=== PATIENT | female | born 1975 | race Caucasian/White ===

== ENCOUNTER → 2020-01-06 | Outpatient (CLI) | payer OTHER ==
[~2020-01-06] MED LIST: ACET65TA OR; ALLE25CA OR; VICO5TAB OR
[2020-01-06 11:29] LABS: HCG, SERUM QUANTITATIVE < 1.0 MIU/ML
[2020-01-06 11:31] LABS: ESTRADIOL < 19.0 PG/ML; LUTEINIZING HORMONE 4.1 mIU/mL; PROGESTERONE 0.48 NG/ML
[2020-01-06 11:32] LABS: FOLLICLE STIMULATING HORMONE 12.8 mIU/mL
--- NOTE | 2020-01-06 11:48 | REP ---
TRANSVAGINAL PELVIC ULTRASOUND FOLLICLE STUDY: Real-time sonographic evaluation of the pelvis performed utilizing transvaginal technique. Uterus measures 10.8 x 5.3 x 6.8 cm. Endometrial thickness is 4 mm. There is no endometrial fluid collection. A few small nabothian cysts are present in the region of the cervix. Right ovary measures 2.2 x 1.1 x 1.7 cm. There are approximately five subcentimeter follicles noted measuring between 2 and 6 mm. Left ovary measures 2.1 x 1.2 x 1.8 cm. There are approximately nine subcentimeter follicles in the left ovary measuring 1 to 3 mm in diameter. No follicles are seen greater than 10 mm. Electronically Signed by Duy Becker MD 01/06/2020 02:23 P
== END ==
LOC: M RAD 09:42
PROVIDERS: ATTEND Obstetrics & Gynecology Reproductive Endocrinology
DX: E28.9 Ovarian dysfunction, unspecified (principal)

== ENCOUNTER → 2020-02-09 | Outpatient (CLI) | payer OTHER ==
--- NOTE | 2020-02-09 13:33 | REP ---
Transvaginal pelvic sonography: History: Ovarian dysfunction. Follicle study. Findings: Uterine dimensions are 10.5 x 6.0 x 6.6 cm. Endometrial stripe is 0.9 cm in greatest thickness today. Trilaminar appearance. No free fluid is seen in the cul-de-sac. The right ovary has dimensions of 2.4 x 2.2 x 1.9 cm today. There are no follicles greater than a centimeter in the right ovary. The right ovary contains three follicles ranging in size from 0.2-0.6 cm. The overall dimensions of the left ovary are 3.2 x 1.4 x 3.0 cm. There is a 1.1 by 0.7 cm cyst in the left ovary with a some internal echoes. There are three follicles in the left ovary ranging in size from 0.3-0.4 cm. No other left ovarian follicles are seen. Impression: Ovarian follicle study as above. Electronically Signed by Harman Early MD 02/09/2020 01:25 P
[2020-02-09 13:46] LABS: HCG, SERUM QUANTITATIVE < 1.0 MIU/ML
[2020-02-09 13:47] LABS: ESTRADIOL 34.5 PG/ML; LUTEINIZING HORMONE 2.9 mIU/mL; PROGESTERONE 0.69 NG/ML
[2020-02-09 13:48] LABS: FOLLICLE STIMULATING HORMONE 4.7 mIU/mL
== END ==
LOC: M LAB 12:39
PROVIDERS: ATTEND Obstetrics & Gynecology Reproductive Endocrinology
DX: E28.9 Ovarian dysfunction, unspecified (principal)

== ENCOUNTER → 2020-02-15 | Outpatient (CLI) | payer OTHER ==
[2020-02-15 11:10] LABS: HCG, SERUM QUANTITATIVE < 1.0 MIU/ML
[2020-02-15 11:26] LABS: LUTEINIZING HORMONE 5.2 mIU/mL; PROGESTERONE 0.32 NG/ML
[2020-02-15 11:27] LABS: ESTRADIOL 38.1 PG/ML; FOLLICLE STIMULATING HORMONE 12.8 mIU/mL
--- NOTE | 2020-02-15 13:19 | REP ---
TRANSVAGINAL PELVIC ULTRASOUND, FOLLICLE STUDY: Transvaginal ultrasound of the pelvis is performed. The uterus measures 9.9 x 5.0 x 6.2 cm. Endometrial thickness is 4 mm. Subcentimeter nabothian cyst is seen in the region of the cervix. Right ovary measures 2.2 x 1.7 x 2.0 cm. Left ovary measures 2.8 x 1.5 x 2.1 cm. There are no dominant follicles bilaterally greater than 10 mm in diameter. There are approximately four subcentimeter follicles in the right ovary and three in the left ovary. Electronically Signed by Duy Becker MD 02/15/2020 01:45 P
== END ==
LOC: M RAD 09:30
PROVIDERS: ATTEND Obstetrics & Gynecology Reproductive Endocrinology
DX: E28.9 Ovarian dysfunction, unspecified (principal)

== ENCOUNTER → 2020-02-19 | Outpatient (CLI) | payer OTHER ==
[2020-02-19 09:45] LABS: HCG, SERUM QUANTITATIVE < 1.0 MIU/ML
--- NOTE | 2020-02-19 10:24 | REP ---
TRANSVAGINAL PELVIS ULTRASOUND FOLLICLE STUDY: Transvaginal pelvic ultrasound performed. The uterus measures 10.2 x 5.1 x 6.3 cm. Endometrial thickness is 5 mm. Tiny nabothian cyst is seen in the region of the cervix. Right ovary measures 3.3 x 2.1 x 2.5 cm. A dominant follicle measures 19 x 15 mm. Another subcentimeter follicle is seen approximately 4 mm in diameter. Left ovary measures 3.5 x 0.9 x 2.1 cm. Approximately five subcentimeter follicles are seen in the left ovary. Electronically Signed by Duy Becker MD 02/19/2020 11:08 A
[2020-02-19 11:27] LABS: PROGESTERONE 0.43 NG/ML
[2020-02-19 11:28] LABS: FOLLICLE STIMULATING HORMONE 11.6 mIU/mL; LUTEINIZING HORMONE 6.2 mIU/mL
== END ==
LOC: M RAD 08:37
PROVIDERS: ATTEND Obstetrics & Gynecology Reproductive Endocrinology
DX: N93.9 Abnormal uterine and vaginal bleeding, unspecified (principal)

== ENCOUNTER → 2020-03-07 | Outpatient (CLI) | payer OTHER ==
[2020-03-07 09:19] LABS: HCG, SERUM QUANTITATIVE < 1.0 MIU/ML
[2020-03-07 10:56] LABS: PROGESTERONE 6.75 NG/ML
== END ==
LOC: M LAB 08:12
PROVIDERS: ATTEND Obstetrics & Gynecology Reproductive Endocrinology
DX: Z32.00 Encounter for pregnancy test, result unknown (principal)

== ENCOUNTER → 2020-03-14 | Outpatient (CLI) | payer OTHER ==
[2020-03-14 09:41] LABS: HCG, SERUM QUANTITATIVE < 1.0 MIU/ML
[2020-03-14 10:23] LABS: PROGESTERONE 0.38 NG/ML
[2020-03-14 10:24] LABS: ESTRADIOL 288.3 PG/ML; FOLLICLE STIMULATING HORMONE 5.1 mIU/mL; LUTEINIZING HORMONE 2.6 mIU/mL
--- NOTE | 2020-03-14 10:29 | REP ---
REASON FOR EXAMINATION: Ovarian dysfunction. Transvaginal pelvic ultrasonography was obtained. The uterus measures 10.4 x 5.3 x 7.1 cm. The parenchymal echo pattern is normal. The endometrial echo complex is normal measuring 7 mm. The right ovary measures 3 x 1.3 x 1.6 cm and is normal. There are six folliclis in the right ovary measuring between 3.2 and 4.5 mm. The left ovary measures 3.8 x 3.1 x 4.6 cm. There is a thickly septated complex cyst in the left ovary which measures 2.7 x 2.6 cm. No papillary projections are seen. A dominant follicle is also seen in the left ovary measuring 1.3 x 0.7 cm. Additionally, there are two follicles in the left ovary measuring between 3.9 and 5.3 mm. IMPRESSION: Findings as described above. Electronically Signed by Darwin Urrutia DO 03/14/2020 04:01 P
== END ==
LOC: M RAD 08:18
PROVIDERS: ATTEND Obstetrics & Gynecology Reproductive Endocrinology
DX: E28.9 Ovarian dysfunction, unspecified (principal)

== ENCOUNTER → 2020-03-21 | Outpatient (CLI) | payer OTHER ==
[2020-03-21 09:45] LABS: HCG, SERUM QUANTITATIVE < 1.0 MIU/ML
[2020-03-21 09:48] LABS: PROGESTERONE 0.56 NG/ML
[2020-03-21 09:49] LABS: LUTEINIZING HORMONE 3.8 mIU/mL
[2020-03-21 09:50] LABS: ESTRADIOL 549.3 PG/ML; FOLLICLE STIMULATING HORMONE 8.2 mIU/mL
--- NOTE | 2020-03-21 11:26 | REP ---
Transvaginal pelvic sonography: History: Ovarian dysfunction. Follicle study. Findings: Transvaginal pelvic sonography is performed. Uterine dimensions are 10.2 x 5.9 x 6.2 cm. Endometrial stripe is 0.8 cm thick. No free fluid or focal uterine mass is seen. Right ovary measures 2.4 x 1.5 x 1.6 cm. Left ovary measures 4.0 x 3.1 x 4.3 cm. There are no follicles over a centimeter in the right ovary. The right ovary contains four follicles ranging in size of 0.4-0.7 cm. In the left ovary there is a 3.3 x 2.8 centimeter cyst and a 1.4 x 0.6 cm follicle. There are three follicles in the left ovary ranging from 0.4-0.5 cm. Impression: Mildly prominent uterine size. Ovaries and follicles as above. Electronically Signed by Harman Early MD 03/21/2020 09:27 A
== END ==
LOC: M RAD 08:45
PROVIDERS: ATTEND Obstetrics & Gynecology Reproductive Endocrinology
DX: N97.9 Female infertility, unspecified (principal)

== ENCOUNTER → 2020-03-23 | Outpatient (CLI) | payer OTHER ==
[2020-03-23 10:21] LABS: HCG, SERUM QUANTITATIVE < 1.0 MIU/ML
[2020-03-23 10:24] LABS: ESTRADIOL 545.6 PG/ML; LUTEINIZING HORMONE 3.9 mIU/mL; PROGESTERONE 0.65 NG/ML
--- NOTE | 2020-03-23 10:24 | REP ---
Transvaginal pelvic sonography: History: Ovarian dysfunction. Follicle study. Findings: Uterine dimensions are 10.6 x 5.5 x 6.8 cm. Endometrial stripe is 0.9 cm thick. No focal uterine mass is seen. The right ovaries dimensions today overall are 2.3 x 1.6 x 1.9 cm. There are no follicles measuring greater than a centimeter in the right ovary today. There are five follicles in the right ovary ranging in size from 0.4-0.9 cm. The left ovary dimensions are 4.6 x 3.1 by 4.6 cm. There are two follicles in the left ovary ranging from 0.4-0.8 cm. There is a 3.4 x 2.7 centimeter cystic lesion in the left ovary containing septations. No other follicles larger than a centimeter is seen in the left ovary. Impression: Ovarian follicle study as above. 3.4 cm septated cyst in the left ovary. Electronically Signed by Harman Early MD 03/23/2020 10:15 A
== END ==
LOC: M RAD 09:06
PROVIDERS: ATTEND Obstetrics & Gynecology Reproductive Endocrinology
DX: E28.9 Ovarian dysfunction, unspecified (principal)

== ENCOUNTER → 2020-03-25 | Outpatient (CLI) | payer OTHER ==
[2020-03-25 11:51] LABS: HCG, SERUM QUANTITATIVE < 1.0 MIU/ML
[2020-03-25 11:52] LABS: LUTEINIZING HORMONE 3.2 mIU/mL; PROGESTERONE 0.56 NG/ML
[2020-03-25 11:53] LABS: ESTRADIOL 508.7 PG/ML; FOLLICLE STIMULATING HORMONE 7.5 mIU/mL
--- NOTE | 2020-03-25 13:23 | REP ---
TRANSVAGINAL PELVIC ULTRASOUND, FOLLICLE STUDY: Real-time sonographic evaluation of pelvis performed utilizing transvaginal technique. Uterus measures 10.6 x 5.6 x 5.9 cm. Endometrial stripe measures 14 mm in AP dimension. There is no endometrial fluid collection. Right ovary measures 2.3 x 1.8 x 2.0 cm. A dominant follicle measures 12 x 7 mm. Approximately six other subcentimeter follicles range in size between 3 and 6 mm. Left ovary measures 4.9 x 2.9 x 4.6 cm. Dominant follicle measures 11 x 6 mm. Cystic structure in the left ovary 3.9 x 2.3 cm contains a small internal daughter cyst. Electronically Signed by Duy Becker MD 03/25/2020 03:20 P
== END ==
LOC: M LAB 09:28
PROVIDERS: ATTEND Obstetrics & Gynecology Reproductive Endocrinology
DX: E28.9 Ovarian dysfunction, unspecified (principal)

== ENCOUNTER → 2020-03-29 | Outpatient (CLI) | payer OTHER ==
--- NOTE | 2020-03-29 07:39 | REPVR ---
PROCEDURE INFORMATION: Exam: US Pelvis, Transvaginal Exam date and time: 03/29/2020 7:25 AM Age: 44 years old Clinical indication: Screening exam; Follicle study; Additional info: Ovarian dysfunction TECHNIQUE: Imaging protocol: Real-time transvaginal pelvic ultrasound with image documentation. Transvaginal imaging was used for better evaluation of the endometrium and adnexa. COMPARISON: Transvaginal NON- US 03/25/2020 10:49 AM FINDINGS: Uterus/cervix: Uterus measures 10.6 x 5.0 x 6.7 cm. Endometrial stripe measures 1.1 cm in thickness. No uterine masses. Right adnexa: Right ovary measures 2.1 x 1.9 x 1.7 cm. Anechoic cyst in the right ovary measuring 12.8 x 8.6 mm. No abnormal number of follicles. Left adnexa: Left ovary measures 5.2 x 3.1 x 5.2 cm. Cyst in the left ovary measuring 3.1 x 2.6 cm containing 7 mm daughter cyst. Small cyst measuring 1.8 x 0.8 cm. Small cyst measuring 1.1 x 0.7 cm. No abnormal number of follicles. Free fluid: None. IMPRESSION: 1. Dominant cyst in the left ovary. Other smaller cysts in the ovaries bilaterally. No follow-up is necessary. 2. Endometrial stripe is within normal limits for premenopausal female. Electronically signed by: Bennett Richardson On 03/29/2020 07:39:01 AM
[2020-03-29 08:05] LABS: ESTRADIOL 366.3 PG/ML; LUTEINIZING HORMONE 5.4 mIU/mL; PROGESTERONE 0.48 NG/ML
== END ==
LOC: M RAD 06:39
PROVIDERS: ATTEND Obstetrics & Gynecology Reproductive Endocrinology
DX: E28.9 Ovarian dysfunction, unspecified (principal); N83.201 Unspecified ovarian cyst, right side; N83.202 Unspecified ovarian cyst, left side

== ENCOUNTER → 2020-04-18 | Outpatient (CLI) | payer OTHER ==
[2020-04-18 15:03] LABS: HCG, SERUM QUANTITATIVE < 1.0 MIU/ML
[2020-04-18 15:11] LABS: PROGESTERONE 1.75 NG/ML
== END ==
LOC: M LAB 13:46
PROVIDERS: ATTEND Obstetrics & Gynecology Reproductive Endocrinology
DX: E28.9 Ovarian dysfunction, unspecified (principal)

== ENCOUNTER → 2020-05-04 | Outpatient (CLI) | payer OTHER ==
[2020-07-01 22:46] LABS: ESTRADIOL 424.7 PG/ML; LUTEINIZING HORMONE 6.8 mIU/mL; PROGESTERONE 0.73 NG/ML
== END ==
LOC: M LAB 08:46
PROVIDERS: ATTEND Obstetrics & Gynecology Reproductive Endocrinology
DX: E28.9 Ovarian dysfunction, unspecified (principal)

== ENCOUNTER → 2020-05-05 | Outpatient (CLI) | payer OTHER ==
[2020-07-02 15:57] LABS: PROGESTERONE 1.34 NG/ML
[2020-07-02 15:58] LABS: ESTRADIOL 740.2 PG/ML; LUTEINIZING HORMONE 10.5 mIU/mL
== END ==
LOC: M LAB 15:00
PROVIDERS: ATTEND Obstetrics & Gynecology Reproductive Endocrinology
DX: E28.9 Ovarian dysfunction, unspecified (principal)

== ENCOUNTER → 2020-05-16 | Outpatient (CLI) | payer OTHER ==
[2020-07-14 14:41] LABS: ESTRADIOL 452.9 PG/ML; PROGESTERONE 34.55 NG/ML
== END ==
LOC: M LAB 11:25
PROVIDERS: ATTEND Obstetrics & Gynecology Reproductive Endocrinology
DX: E28.9 Ovarian dysfunction, unspecified (principal)

== ENCOUNTER → 2020-05-23 | Outpatient (CLI) | payer OTHER ==
[2020-05-23 12:12] LABS: HCG, SERUM QUANTITATIVE < 1.0 MIU/ML
[2020-05-23 12:44] LABS: PROGESTERONE 1.77 NG/ML
== END ==
LOC: M LAB 10:32
PROVIDERS: ATTEND Obstetrics & Gynecology Reproductive Endocrinology
DX: Z32.00 Encounter for pregnancy test, result unknown (principal)

== ENCOUNTER → 2020-05-25 | Outpatient (CLI) | payer OTHER ==
[2020-05-25 11:41] LABS: HCG, SERUM QUANTITATIVE < 1.0 MIU/ML
[2020-05-25 11:51] LABS: PROGESTERONE 3.35 NG/ML
== END ==
LOC: M LAB 10:24
PROVIDERS: ATTEND Obstetrics & Gynecology Reproductive Endocrinology
DX: E28.9 Ovarian dysfunction, unspecified (principal)

== ENCOUNTER → 2020-06-01 | Outpatient (CLI) | payer OTHER ==
[2020-06-01 12:47] LABS: ESTRADIOL < 19.0 PG/ML; LUTEINIZING HORMONE 6.3 mIU/mL; PROGESTERONE 0.33 NG/ML
== END ==
LOC: M LAB 09:40
PROVIDERS: ATTEND Obstetrics & Gynecology Reproductive Endocrinology
DX: E28.9 Ovarian dysfunction, unspecified (principal)

== ENCOUNTER → 2020-06-03 | Outpatient (CLI) | payer OTHER ==
[2020-06-03 11:31] LABS: ESTRADIOL 38.8 PG/ML; LUTEINIZING HORMONE 7.7 mIU/mL; PROGESTERONE 0.6 NG/ML
== END ==
LOC: M LAB 08:30
PROVIDERS: ATTEND Obstetrics & Gynecology Reproductive Endocrinology
DX: E28.9 Ovarian dysfunction, unspecified (principal)

== ENCOUNTER → 2020-06-08 | Outpatient (CLI) | payer OTHER ==
[2020-06-08 12:52] LABS: LUTEINIZING HORMONE 5.1 mIU/mL; PROGESTERONE 0.32 NG/ML
== END ==
LOC: M LAB 09:23
PROVIDERS: ATTEND Obstetrics & Gynecology Reproductive Endocrinology
DX: E28.9 Ovarian dysfunction, unspecified (principal)

== ENCOUNTER → 2020-06-21 | Outpatient (CLI) | payer OTHER ==
[2020-06-21 10:35] LABS: HCG, SERUM QUANTITATIVE < 1.0 MIU/ML
[2020-06-21 10:43] LABS: PROGESTERONE 22.15 NG/ML
== END ==
LOC: M LAB 09:30
PROVIDERS: ATTEND Obstetrics & Gynecology Reproductive Endocrinology
DX: Z32.00 Encounter for pregnancy test, result unknown (principal)

== ENCOUNTER → 2020-06-27 | Outpatient (CLI) | payer OTHER ==
[2020-06-27 14:11] LABS: ESTRADIOL 28.7 PG/ML; PROGESTERONE 0.29 NG/ML
== END ==
LOC: M LAB 13:07
PROVIDERS: ATTEND Obstetrics & Gynecology Reproductive Endocrinology
DX: E28.9 Ovarian dysfunction, unspecified (principal)

== ENCOUNTER → 2020-07-04 | Outpatient (CLI) | payer OTHER ==
[2020-07-04 12:51] LABS: LUTEINIZING HORMONE 6.4 mIU/mL; PROGESTERONE 0.21 NG/ML
== END ==
LOC: M LAB 11:31
PROVIDERS: ATTEND Obstetrics & Gynecology Reproductive Endocrinology
DX: E28.9 Ovarian dysfunction, unspecified (principal)

== ENCOUNTER → 2020-07-06 | Outpatient (CLI) | payer OTHER ==
[2020-07-06 11:51] LABS: ESTRADIOL 221.3 PG/ML; LUTEINIZING HORMONE 4.9 mIU/mL; PROGESTERONE 0.21 NG/ML
== END ==
LOC: M LAB 09:59
PROVIDERS: ATTEND Obstetrics & Gynecology Reproductive Endocrinology
DX: E28.9 Ovarian dysfunction, unspecified (principal)

== ENCOUNTER → 2020-07-06 | Outpatient (CLI) | payer OTHER ==
[2020-07-06 12:18] LABS: FOLATE > 24.0 NG/ML; FREE T4 1.12 NG/DL (0.76-1.46); RHEUMATOID FACTOR QUANT < 10.0 IU/ML (<15.0); TOTAL PROTEIN 6.8 GM/DL (6.4-8.2); VITAMIN B12 LEVEL 596 PG/ML
[2020-07-06 13:33] LABS: HEMOGLOBIN A1c 5.2 %
[2020-07-07 15:01] LABS: ALBUMIN 3.91 GM/DL (3.29-5.55); ALBUMIN % 57.5 % (55.8-66.1); ALPHA-1-GLOBULIN % 4.5 % (2.9-4.9); ALPHA-1-GLOBULINS 0.31 GM/DL (0.17-0.41); ALPHA-2-GLOBULINS 0.61 GM/DL (0.42-0.99); BETA-1-GLOBULINS 0.46 GM/DL (0.28-0.60); BETA-1-GLOBULINS % 6.7 % (4.7-7.2); BETA-2-GLOBULINS 0.42 GM/DL (0.19-0.55); BETA-2-GLOBULINS % 6.2 % (3.2-6.5); GAMMA GLOBULIN % 16.1 % (11.1-18.8); GAMMA GLOBULINS 1.09 GM/DL (0.65-1.58)
[2020-07-10 07:48] LABS: DRVV SCREEN 45.7 SEC
[2020-07-10 07:49] LABS: PTT LUPUS TYPE ANTICOAG SCREEN 1.1 (0-1.2)
[2020-07-12 11:12] LABS: ANTI DOUBLE STRAND-DNA AB 1 IU/mL (0-9); ANTINUCLEAR ANTIBODIES DIRECT Positive (Negative); RNP ANTIBODIES 2.1 AI (0.0-0.9); SJOGREN'S ANTI SS-A <0.2 AI (0.0-0.9); SJOGREN'S ANTI SS-B <0.2 AI (0.0-0.9); SMITH ANTIBODIES <0.2 AI (0.0-0.9); VITAMIN B1 LEVEL WHOLE BLOOD 148.5 nmol/L (66.5-200.0); VITAMIN B6,PYRIDOXAL PHOSPHATE 6.6 ug/L (2.0-32.8); VITAMIN E(ALPHA TOCOPHEROL) 8.6 mg/L (7.0-25.1); VITAMIN E(GAMMA TOCOPHEROL) 1.4 mg/L (0.5-5.5)
== END ==
LOC: M LAB 10:01
PROVIDERS: ATTEND Psychiatry & Neurology Neurology
DX: M54.5 Low back pain (principal); E28.9 Ovarian dysfunction, unspecified; G62.9 Polyneuropathy, unspecified

== ENCOUNTER → 2020-07-21 | Outpatient (CLI) | payer OTHER ==
[2020-07-21 17:59] LABS: HCG, SERUM QUANTITATIVE < 1.0 MIU/ML
== END ==
LOC: M LAB 17:01
PROVIDERS: ATTEND Obstetrics & Gynecology Reproductive Endocrinology
DX: Z32.00 Encounter for pregnancy test, result unknown (principal)

== ENCOUNTER → 2020-07-25 | Outpatient (CLI) | payer OTHER | LOC: M LAB 10:32 | PROVIDERS: ATTEND Obstetrics & Gynecology Reproductive Endocrinology | DX: E28.9 Ovarian dysfunction, unspecified (principal) ==

== ENCOUNTER → 2020-07-27 | Outpatient (CLI) | payer OTHER ==
[2020-07-27 11:15] LABS: ESTRADIOL 38.4 PG/ML; LUTEINIZING HORMONE 5.2 mIU/mL; PROGESTERONE 0.35 NG/ML
== END | disposition home or self-care (01) ==
LOC: M LAB 09:07
PROVIDERS: ATTEND Obstetrics & Gynecology Reproductive Endocrinology
DX: E28.9 Ovarian dysfunction, unspecified (principal)

== ENCOUNTER → 2020-08-11 | Outpatient (CLI) | payer OTHER ==
[2020-08-11 18:51] LABS: ESTRADIOL 66.3 PG/ML; PROGESTERONE 53.53 NG/ML
== END ==
LOC: M LAB 17:04
PROVIDERS: ATTEND Obstetrics & Gynecology Reproductive Endocrinology
DX: E28.9 Ovarian dysfunction, unspecified (principal)

== ENCOUNTER → 2020-08-18 | Outpatient (CLI) | payer OTHER ==
[2020-08-18 18:08] LABS: HCG, SERUM QUANTITATIVE < 1.0 MIU/ML
[2020-08-18 18:11] LABS: PROGESTERONE 28.78 NG/ML
== END ==
LOC: M LAB 17:17
PROVIDERS: ATTEND Obstetrics & Gynecology Reproductive Endocrinology
DX: E28.9 Ovarian dysfunction, unspecified (principal)

== ENCOUNTER → 2020-09-01 | Outpatient (CLI) | payer OTHER ==
[2020-09-01 15:49] LABS: ESTRADIOL 75.4 PG/ML; PROGESTERONE 0.52 NG/ML
== END ==
LOC: M LAB 14:26
PROVIDERS: ATTEND Obstetrics & Gynecology Reproductive Endocrinology
DX: E28.9 Ovarian dysfunction, unspecified (principal)

== ENCOUNTER → 2020-09-06 | Outpatient (CLI) | payer OTHER ==
--- NOTE | 2020-09-06 17:09 | REPVR ---
PROCEDURE INFORMATION: Exam: CT Lumbar Spine Without Contrast Exam date and time: 09/06/2020 4:52 PM Age: 44 years old Clinical indication: Low back pain TECHNIQUE: Imaging protocol: Computed tomography images of the lumbar spine without contrast. Radiation optimization: All CT scans at this facility use at least one of these dose optimization techniques: automated exposure control; mA and/or kV adjustment per patient size (includes targeted exams where dose is matched to clinical indication); or iterative reconstruction. COMPARISON: No relevant prior studies available. FINDINGS: Vertebrae: Lumbar lordosis is preserved. Vertebral body heights are maintained. No acute lumbar spine fracture. No measurable spondylolisthesis. Discs/Spinal canal/Neural foramina: Disc space heights are intact. No significant spinal stenosis. Kidneys and ureters: 4 cm fluid density cyst in the superior left kidney. Soft tissues: Multiple small metallic foreign bodies within the posterior back soft tissues. IMPRESSION: 1. No acute in the lumbar spine. 2. Chronic findings, as above. COMMENTS: Consistent with the [employer]'s Incidental Findings Committee white paper (J Am Zach Radiol 2018): Any incidental renal lesion less than 1 cm or classified as too small to characterize, or any incidental cystic renal lesion characterized as simple-appearing, is likely benign. No follow-up imaging is recommended for these lesions per consensus recommendations based on imaging criteria. Electronically signed by: Ady Jackson On 09/06/2020 17:10:04 PM
--- NOTE | 2020-09-06 17:25 | REPVR ---
PROCEDURE INFORMATION: Exam: CT Cervical Spine Without Contrast Exam date and time: 09/06/2020 5:06 PM Age: 44 years old Clinical indication: Neck pain; Additional info: Neck and lbp TECHNIQUE: Imaging protocol: Computed tomography images of the cervical spine without contrast. Radiation optimization: All CT scans at this facility use at least one of these dose optimization techniques: automated exposure control; mA and/or kV adjustment per patient size (includes targeted exams where dose is matched to clinical indication); or iterative reconstruction. COMPARISON: No relevant prior studies available. FINDINGS: Bones/joints: Straightening of the cervical lordosis. Vertebral body heights are maintained. No locked or perched facets. No acute cervical spine fracture. The dens is intact. Atlantoaxial intervals are normal. Discs/Spinal canal/Neural foramina: Mild disc height loss and disc osteophyte formation at C5-C6. Remaining disc space heights are preserved. Soft tissues: Unremarkable. Lungs: Lung apices are clear. IMPRESSION: No acute findings in the cervical spine. Electronically signed by: Ady Jackson On 09/06/2020 17:26:08 PM
== END ==
LOC: M RAD 16:23
PROVIDERS: ATTEND Psychiatry & Neurology Neurology
DX: M54.5 Low back pain (principal); M54.2 Cervicalgia

== ENCOUNTER → 2020-09-21 | Outpatient (CLI) | payer OTHER ==
--- NOTE | 2020-09-21 14:54 | REP ---
INDICATION: OVARIAN DYSFUNCTION LABS 1ST US 2ND COMPARISON: 05/05/2020 TECHNIQUE: Transvaginal pelvic ultrasound for detailed evaluation of the endometrium and adnexa. FINDINGS: Normal anteverted uterus measures 10.2 x 5.7 x 6.3 cm. The endometrial complex measures 3.9 mm thickness. No discrete uterine or endometrial abnormalities are appreciated. Right ovary measures 3.2 x 2.2 x 2.1 cm and includes 18 x 15 mm follicle along with 8 subcentimeter follicles measuring between 3 and 6 mm. Left ovary measures 4.6 x 1.6 x 2.1 cm and includes 11.5 mm and 10.9 mm follicles along with 2 subcentimeter follicles measuring 3 mm and 5 mm. IMPRESSION: Uterus and ovaries as described above. Few bilateral follicles noted. <Electronically signed by Valentino Sawyer > 09/21/20 [id number]
[2020-09-21 15:20] LABS: HCG, SERUM QUANTITATIVE < 1.0 MIU/ML
[2020-09-21 15:22] LABS: PROGESTERONE 0.25 NG/ML
[2020-09-21 15:23] LABS: ESTRADIOL 27.7 PG/ML
[2020-09-21 15:24] LABS: FOLLICLE STIMULATING HORMONE 13.4 mIU/mL
== END ==
LOC: M RAD 14:19
PROVIDERS: ATTEND Obstetrics & Gynecology Reproductive Endocrinology
DX: E28.9 Ovarian dysfunction, unspecified (principal)

== ENCOUNTER → 2020-10-17 | Outpatient (CLI) | payer OTHER ==
[2020-10-17 19:05] LABS: HCG, SERUM QUANTITATIVE < 1.0 MIU/ML
[2020-10-17 19:08] LABS: FOLLICLE STIMULATING HORMONE 9.8 mIU/mL; LUTEINIZING HORMONE 3.3 mIU/mL; PROGESTERONE 0.27 NG/ML
== END ==
LOC: M LAB 17:47
PROVIDERS: ATTEND Obstetrics & Gynecology Reproductive Endocrinology
DX: E28.9 Ovarian dysfunction, unspecified (principal)

== ENCOUNTER → 2020-10-28 | Outpatient (CLI) | payer OTHER ==
[2020-10-28 10:11] LABS: ESTRADIOL 421.3 PG/ML; LUTEINIZING HORMONE 11.9 mIU/mL; PROGESTERONE 0.53 NG/ML
== END ==
LOC: M LAB 08:56
PROVIDERS: ATTEND Obstetrics & Gynecology Reproductive Endocrinology
DX: E28.9 Ovarian dysfunction, unspecified (principal)

== ENCOUNTER → 2020-11-06 | Outpatient (CLI) | payer OTHER ==
[2020-11-07 10:34] LABS: ESTRADIOL 78.9 PG/ML; PROGESTERONE 17.14 NG/ML
== END ==
LOC: M LAB 15:15
PROVIDERS: ATTEND Obstetrics & Gynecology Reproductive Endocrinology
DX: E28.9 Ovarian dysfunction, unspecified (principal)

== ENCOUNTER → 2020-11-14 | Outpatient (CLI) | payer OTHER ==
--- NOTE | 2020-11-14 12:40 | REP ---
INDICATION: INFERTILITY, STAT LABS AFTER US. COMPARISON: None. TECHNIQUE: Transvaginal pelvic sonography. FINDINGS: Uterine dimensions are 10.7 x 5.0 x 6.6 cm. Endometrial echo is 0.4 cm thick. No focal uterine mass is seen. No free fluid is noted. Right ovary measures 3.0 x 1.9 x 1.1 cm. There are 4 follicles the right ovary ranging in size from 0.2-0.7 cm. No larger cyst or follicle is seen. The left ovary dimensions are 3.1 x 1.5 x 1.8 cm. There are 8 follicles in the left ovary rating in size from 0.821.1 cm. No larger follicles are seen on the left. IMPRESSION: Normal pelvic sonography. <Electronically signed by Matt Early > 11/14/20 [id number]
[2020-11-14 13:15] LABS: HCG, SERUM QUANTITATIVE < 1.0 MIU/ML
[2020-11-14 13:18] LABS: ESTRADIOL 29.2 PG/ML; FOLLICLE STIMULATING HORMONE 11.4 mIU/mL; LUTEINIZING HORMONE 5.1 mIU/mL; PROGESTERONE 0.59 NG/ML
== END ==
LOC: M RAD 11:51
PROVIDERS: ATTEND Obstetrics & Gynecology Reproductive Endocrinology
DX: E28.9 Ovarian dysfunction, unspecified (principal)

== ENCOUNTER → 2020-11-23 | Outpatient (CLI) | payer OTHER ==
[2020-11-23 10:47] LABS: ESTRADIOL 139.8 PG/ML; LUTEINIZING HORMONE 1.4 mIU/mL; PROGESTERONE 0.46 NG/ML
== END ==
LOC: M LAB 09:02
PROVIDERS: ATTEND Obstetrics & Gynecology Reproductive Endocrinology
DX: E28.9 Ovarian dysfunction, unspecified (principal)

== ENCOUNTER → 2020-12-08 | Outpatient (CLI) | payer OTHER ==
[2020-12-08 18:54] LABS: PROGESTERONE 6.23 NG/ML
== END ==
LOC: M LAB 17:19
PROVIDERS: ATTEND Obstetrics & Gynecology Reproductive Endocrinology
DX: Z32.00 Encounter for pregnancy test, result unknown (principal)

== ENCOUNTER → 2020-12-11 | Outpatient (CLI) | payer OTHER ==
[2020-12-12 10:42] LABS: PROGESTERONE 1.46 NG/ML
== END ==
LOC: M LAB 12-09 19:09
PROVIDERS: ATTEND Obstetrics & Gynecology Reproductive Endocrinology
DX: E28.9 Ovarian dysfunction, unspecified (principal)

== ENCOUNTER → 2020-12-14 | Outpatient (CLI) | payer OTHER ==
[2020-12-14 12:33] LABS: THYROID STIMULATING HORMONE 1.29 uIU/ML (0.358-3.740)
[2020-12-14 12:36] LABS: ESTRADIOL 33.1 PG/ML; FOLLICLE STIMULATING HORMONE 9.4 mIU/mL; PROGESTERONE 0.84 NG/ML
== END ==
LOC: M LAB 10:44
PROVIDERS: ATTEND Obstetrics & Gynecology Reproductive Endocrinology
DX: E28.9 Ovarian dysfunction, unspecified (principal)

== ENCOUNTER → 2020-12-22 | Outpatient (CLI) | payer OTHER ==
[2020-12-22 09:25] LABS: ESTRADIOL 71.5 PG/ML; LUTEINIZING HORMONE 5.7 mIU/mL; PROGESTERONE 0.43 NG/ML
== END ==
LOC: M LAB 07:42
PROVIDERS: ATTEND Obstetrics & Gynecology Reproductive Endocrinology
DX: E28.9 Ovarian dysfunction, unspecified (principal)

== ENCOUNTER → 2020-12-23 | Outpatient (CLI) | payer OTHER ==
--- NOTE | 2020-12-23 08:08 | REP ---
INDICATION: INFERTILITY LABS 1ST US 2ND. COMPARISON: Comparison study November 14, 2020.. TECHNIQUE: Transvaginal pelvic sonography. Ovarian follicle study. FINDINGS: Uterine dimensions are 10.5 x 5.3 x 6.0 cm. Endometrial echo is 0.4 cm thick. No focal uterine mass or free fluid is seen. The overall dimensions of the right ovary today are 2.9 x 1.6 x 2.2 cm. There is 1 follicle larger than a cm measuring 1.6 x 1.3 cm in the right ovary. There are 3 follicles in the right ovary measuring 0.3-0.7 cm. The overall dimensions of the left ovary today are 3.4 x 1.3 x 3.0 cm. There are 2 follicles greater than a cm in the left ovary measured as follows: 1.5 x 1.3 and 1.4 x 1.1 cm. In addition, there is a 0.5 cm follicle in the left ovary. IMPRESSION: Normal pelvic sonography. Ovarian follicles as above. <Electronically signed by Matt Early > 12/23/20 [id number]
[2020-12-23 11:09] LABS: ESTRADIOL 89.7 PG/ML; LUTEINIZING HORMONE 4.5 mIU/mL; PROGESTERONE 0.3 NG/ML
== END ==
LOC: M RAD 07:15
PROVIDERS: ATTEND Obstetrics & Gynecology Reproductive Endocrinology
DX: E28.9 Ovarian dysfunction, unspecified (principal)

== ENCOUNTER → 2021-05-18 | Outpatient (REF) | payer BC | LOC: M LAB REF 15:03 | PROVIDERS: ATTEND Orthopaedic Surgery | DX: M85.471 Solitary bone cyst, right ankle and foot (principal) ==

== ENCOUNTER → 2021-06-28 | Outpatient (CLI) | payer BC ==
[~2021-06-28] MED LIST changes: +AFRI0.058; +COMBAER6 INH; +FLON27.5 NARES
== END ==
LOC: M PAIN 13:00
PROVIDERS: ATTEND Anesthesiology
DX: M79.18 Myalgia, other site (principal); M54.2 Cervicalgia; G43.909 Migraine, unspecified, not intractable, without status migrainosus; M54.81 Occipital neuralgia; M47.812 Spondylosis without myelopathy or radiculopathy, cervical region; M54.5 Low back pain; M47.817 Spondylosis without myelopathy or radiculopathy, lumbosacral region; K21.9 Gastro-esophageal reflux disease without esophagitis; J45.909 Unspecified asthma, uncomplicated; F41.9 Anxiety disorder, unspecified; F43.10 Post-traumatic stress disorder, unspecified; Z79.899 Other long term (current) drug therapy; Z88.0 Allergy status to penicillin; Z88.1 Allergy status to other antibiotic agents

== ENCOUNTER 2021-07-04 07:59 | Emergency (ER) | payer BC ==
[~2021-07-04] VITALS: Ht 175.3 cm; Wt 106.5 kg
[~2021-07-04 07:59] MED LIST changes: -AFRI0.058; -COMBAER6 INH; -FLON27.5 NARES
[2021-07-04] MEDS ORDERED: COMBIVENT RESPIMAT 100-20MCG INHALER 4GM INH PRN (08:25)
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
[2021-07-04 08:52] LABS: BASO % 0.4 % (0.0-1.0); EOS # 0.2 10^3/uL (0.0-0.5); EOS % 2.9 % (0.0-3.0); HEMATOCRIT 41.8 % (36.0-47.0); HEMOGLOBIN 13.9 g/dl (12.0-15.5); LYMPH # 0.9 10^3/uL (1.5-5.0); LYMPH % 17.1 % (24.0-44.0); MEAN CORPUSCULAR HEMOGLOBIN 30.1 pg (27.0-33.0); MEAN CORPUSCULAR HGB CONC 33.3 g/dl (32.0-36.5); MEAN CORPUSCULAR VOLUME 90.5 fl (80.0-96.0); MONO # 0.5 10^3/uL (0.0-0.8); MONO % 8.6 % (2.0-8.0); NEUTROPHILS # 3.9 10^3/uL (1.5-8.5); NEUTROPHILS % 70.6 % (36.0-66.0); PLATELET COUNT, AUTOMATED 181 10^3/uL (150-450); RED BLOOD COUNT 4.62 10^6/uL (4.00-5.40); WHITE BLOOD COUNT 5.5 10^3/uL (4.0-10.0)
[2021-07-04 09:30] LABS: ALBUMIN 3.2 GM/DL (3.2-5.2); ALT/SGPT 20 U/L (12-78); BILIRUBIN,DIRECT 0.2 MG/DL (0.0-0.2); BILIRUBIN,TOTAL 0.6 MG/DL (0.2-1.0); BLOOD UREA NITROGEN 7 MG/DL (7-18); CALCIUM LEVEL 8.8 MG/DL (8.5-10.1); CARBON DIOXIDE LEVEL 28 MEQ/L (21-32); CHLORIDE LEVEL 111 MEQ/L (98-107); CREATININE FOR GFR 0.78 MG/DL (0.55-1.30); GLOMERULAR FILTRATION RATE > 60.0 (>58); GLUCOSE, FASTING 102 MG/DL (70-100); LIPASE 105 U/L (73-393); NT-PRO BNP 19 PG/ML (<125); SODIUM LEVEL 142 MEQ/L (136-145); TOTAL PROTEIN 6.5 GM/DL (6.4-8.2); TROPONIN I < 0.02 NG/ML (< 0.10)
[2021-07-04] MEDS ORDERED: FLON27.5 NARES (10:22)
[2021-07-04] MEDS ORDERED: AFRI0.058 (10:22)
[2021-07-04] MEDS ORDERED: COMBAER6 INH (10:23)
[2021-07-04 10:51] VITALS: BP 152/71
--- NOTE | 2021-07-05 17:31 | ECGEPIP ---
[facility] - ED Test Date: 2021-07-04 Pat Name: JAIR WOLFE Department: Room: - Gender: Female Veterinary Technician: SALLY : 1975 Requested By: Analilia Carter Order Number: [id number] Reading MD: Analilia Carter Measurements Intervals Curtis Rate: 78 P: 33 NC: 202 QRS: 41 QRSD: 104 T: 45 QT: 406 QTc: 462 Interpretive Statements Normal sinus rhythm Cannot rule out Anterior infarct , age undetermined irbbb No prior Electronically Signed on 07-05-2021 17:30:48 EDT by Analilia Carter
== END 2021-07-04 10:54 | disposition home or self-care (01) ==
LOC: M ED 07:59
DX: R09.82 Postnasal drip (principal); R06.02 Shortness of breath; B97.89 Other viral agents as the cause of diseases classified elsewhere; J45.909 Unspecified asthma, uncomplicated; M32.9 Systemic lupus erythematosus, unspecified; Z79.899 Other long term (current) drug therapy; Z79.51 Long term (current) use of inhaled steroids; Z88.0 Allergy status to penicillin; Z88.1 Allergy status to other antibiotic agents

== ENCOUNTER → 2021-08-10 | Outpatient (CLI) | payer BC ==
[~2021-08-10] MED LIST changes: +AFRI0.058; +COMBAER6 INH; +FLON27.5 NARES
== END ==
LOC: M LAB 15:06
PROVIDERS: ATTEND Obstetrics & Gynecology Reproductive Endocrinology
DX: Z31.41 Encounter for fertility testing (principal)

== ENCOUNTER → 2021-09-03 | Outpatient (CLI) | payer BC ==
[2021-09-03 14:34] LABS: BASO % 0.4 % (0.0-1.0); EOS # 0.1 10^3/uL (0.0-0.5); EOS % 1.9 % (0.0-3.0); HEMATOCRIT 41.1 % (36.0-47.0); HEMOGLOBIN 13.7 g/dl (12.0-15.5); LYMPH # 1.5 10^3/uL (1.5-5.0); LYMPH % 25.5 % (24.0-44.0); MEAN CORPUSCULAR HEMOGLOBIN 29.8 pg (27.0-33.0); MEAN CORPUSCULAR HGB CONC 33.3 g/dl (32.0-36.5); MEAN CORPUSCULAR VOLUME 89.3 fl (80.0-96.0); MONO # 0.4 10^3/uL (0.0-0.8); MONO % 7.2 % (2.0-8.0); NEUTROPHILS # 3.7 10^3/uL (1.5-8.5); PLATELET COUNT, AUTOMATED 206 10^3/uL (150-450); WHITE BLOOD COUNT 5.7 10^3/uL (4.0-10.0)
[2021-09-03 15:37] LABS: ALBUMIN 3.4 GM/DL (3.2-5.2); ALT/SGPT 27 U/L (12-78); BILIRUBIN,TOTAL 0.4 MG/DL (0.2-1.0); BLOOD UREA NITROGEN 15 MG/DL (7-18); CALCIUM LEVEL 8.6 MG/DL (8.5-10.1); CARBON DIOXIDE LEVEL 23 MEQ/L (21-32); CHLORIDE LEVEL 112 MEQ/L (98-107); CREATININE FOR GFR 0.74 MG/DL (0.55-1.30); GLOMERULAR FILTRATION RATE > 60.0 (>58); GLUCOSE, FASTING 111 MG/DL (70-100); POTASSIUM SERUM 3.9 MEQ/L (3.5-5.1); SODIUM LEVEL 144 MEQ/L (136-145); TOTAL PROTEIN 6.9 GM/DL (6.4-8.2)
[2021-09-04 10:19] LABS: TESTOSTERONE 20 NG/DL (14-76); TOTAL 25(OH) VITAMIN D 25.7 NG/ML (30.0-100.0)
[2021-09-04 10:20] LABS: LUTEINIZING HORMONE 2.9 mIU/mL; PROGESTERONE 0.33 NG/ML; PROLACTIN 5.4 NG/ML
[2021-09-04 10:21] LABS: ESTRADIOL 27.5 PG/ML
[2021-09-04 10:34] LABS: HEPATITIS B SURFACE ANTIGEN NEGATIVE (NEGATIVE)
[2021-09-04 10:58] LABS: HEPATITIS C VIRUS ABY INDEX 0.1 INDEX (<0.8)
[2021-09-04 11:01] LABS: HIV 1&2 SCREEN CENTAUR NEGATIVE (NEGATIVE)
[2021-09-05 16:10] LABS: HERPES ZOSTER, VARICELLA IgG 1249 index (Immune >165); HERPES ZOSTER, VARICELLA IgM <0.91 index (0.00-0.90)
== END ==
LOC: M LAB 13:38
PROVIDERS: ATTEND Obstetrics & Gynecology Reproductive Endocrinology
DX: Z31.41 Encounter for fertility testing (principal)

== ENCOUNTER → 2021-09-05 | Outpatient (CLI) | payer BC ==
[2021-09-05 10:59] LABS: HCG, SERUM QUANTITATIVE < 1.0 MIU/ML
[2021-09-05 11:00] LABS: LUTEINIZING HORMONE 4.7 mIU/mL; PROGESTERONE 0.31 NG/ML
[2021-09-05 11:01] LABS: FOLLICLE STIMULATING HORMONE 10.3 mIU/mL
--- NOTE | 2021-09-05 11:19 | REP ---
INDICATION: OVARIAN DYSFUNCTION. COMPARISON: 12/23/2020. TECHNIQUE: Transvaginal pelvic ultrasound performed to evaluate ovarian follicles. FINDINGS: The uterus measures 9.5 x 6.0 x 5.7 cm. The endometrial stripe is homogeneous in echotexture measuring 7 mm in thickness. There is no endometrial fluid collection. There is no free fluid in the pelvis. Right ovary measures 2.3 x 1.6 x 1.3 cm. There is a dominant follicle 13 x 8 mm. Approximately 4 other subcentimeter follicles are visualized. Left ovary measures 2.0 x 1.4 x 1.9 cm. No dominant follicles are seen greater than 1 cm in diameter. There are 3 subcentimeter follicles present. IMPRESSION: Ovarian follicles as discussed in detail above. <Electronically signed by Duy Becker > 09/05/21 [id number]
== END ==
LOC: M RAD 08:39
PROVIDERS: ATTEND Obstetrics & Gynecology Reproductive Endocrinology
DX: Z31.89 Encounter for other procreative management (principal); E28.2 Polycystic ovarian syndrome

== ENCOUNTER → 2021-09-13 | Outpatient (CLI) | payer BC | LOC: M LABSMTC 11:40 | PROVIDERS: ATTEND Anesthesiology | DX: Z01.818 Encounter for other preprocedural examination (principal); Z11.52 Encounter for screening for COVID-19 ==

== ENCOUNTER → 2021-09-18 | Outpatient (CLI) | payer BC ==
[~2021-09-18] MED LIST changes: +BUPIVACAINE HCL 0.25% 10ML VIAL As Ordered ONE; +BUPIVACAINE HCL 0.25% 30ML VIAL As Ordered ONE; +TRIAMCINOLONE ACETONIDE SUSP 40 MG/ML VIAL (J3301) As Ordered ONE
== END ==
LOC: M PAIN 09:20
PROVIDERS: ATTEND Anesthesiology
DX: M79.18 Myalgia, other site (principal); G43.909 Migraine, unspecified, not intractable, without status migrainosus; M47.812 Spondylosis without myelopathy or radiculopathy, cervical region; M54.50 Low back pain, unspecified; M47.817 Spondylosis without myelopathy or radiculopathy, lumbosacral region; K21.9 Gastro-esophageal reflux disease without esophagitis; J45.909 Unspecified asthma, uncomplicated; F41.9 Anxiety disorder, unspecified; F43.10 Post-traumatic stress disorder, unspecified; M35.00 Sjogren syndrome, unspecified; Z79.899 Other long term (current) drug therapy; Z88.1 Allergy status to other antibiotic agents
CPT/HCPCS: 20552; J3301

== ENCOUNTER → 2021-10-17 | Outpatient (CLI) | payer BC ==
[~2021-10-17] MED LIST changes: -BUPIVACAINE HCL 0.25% 10ML VIAL As Ordered ONE; -BUPIVACAINE HCL 0.25% 30ML VIAL As Ordered ONE; -TRIAMCINOLONE ACETONIDE SUSP 40 MG/ML VIAL (J3301) As Ordered ONE
[2021-10-17 14:35] LABS: BLOOD UREA NITROGEN 8 MG/DL (7-18); CARBON DIOXIDE LEVEL 30 MEQ/L (21-32); CHLORIDE LEVEL 105 MEQ/L (98-107); CHOLESTEROL LEVEL 157 MG/DL (<200); CHOLESTEROL RISK RATIO 2.378 (<5); CREATININE FOR GFR 0.76 MG/DL (0.55-1.30); GLOMERULAR FILTRATION RATE > 60.0 (>58); GLUCOSE, FASTING 77 MG/DL (70-100); HDL CHOLESTEROL 66 MG/DL (>40); LDL CHOLESTEROL 72 MG/DL (<100); NON-HDL-C 91 MG/DL; POTASSIUM SERUM 4.1 MEQ/L (3.5-5.1); SODIUM LEVEL 141 MEQ/L (136-145); TRIGLYCERIDES LEVEL 97 MG/DL (<150)
== END ==
LOC: M LAB 12:12
PROVIDERS: ATTEND Student in an Organized Health Care Education/Training Program
DX: Z00.00 Encounter for general adult medical examination without abnormal findings (principal)

== ENCOUNTER → 2021-10-20 | Outpatient (CLI) | payer BC | LOC: M PAIN 11:00 | PROVIDERS: ATTEND Nurse Practitioner Family | DX: G89.29 Other chronic pain (principal); M79.10 Myalgia, unspecified site; G43.909 Migraine, unspecified, not intractable, without status migrainosus; M54.81 Occipital neuralgia; M47.812 Spondylosis without myelopathy or radiculopathy, cervical region; M47.817 Spondylosis without myelopathy or radiculopathy, lumbosacral region; K21.9 Gastro-esophageal reflux disease without esophagitis; J45.909 Unspecified asthma, uncomplicated; F41.9 Anxiety disorder, unspecified; F43.10 Post-traumatic stress disorder, unspecified; M35.00 Sjogren syndrome, unspecified; M32.9 Systemic lupus erythematosus, unspecified; Z79.899 Other long term (current) drug therapy; Z88.1 Allergy status to other antibiotic agents ==

== ENCOUNTER → 2021-12-05 | Outpatient (REF) | payer BC | LOC: M SFHCLERA 11:40 | PROVIDERS: ATTEND Student in an Organized Health Care Education/Training Program | DX: Z12.4 Encounter for screening for malignant neoplasm of cervix (principal) ==

== ENCOUNTER → 2021-12-28 | Outpatient (REF) | payer BC ==
[2021-12-28 17:55] LABS: GC DNA AMPLIFICATION NEGATIVE (NEGATIVE)
== END ==
LOC: M SFHCLERA 15:40
PROVIDERS: ATTEND Student in an Organized Health Care Education/Training Program
DX: N89.8 Other specified noninflammatory disorders of vagina (principal)

== ENCOUNTER → 2022-04-20 | Outpatient (CLI) | payer BC ==
[~2022-04-20] MED LIST changes: -AFRI0.058; +ISOVUE-370 76% 100ML VIAL As Ordered ONE; +OXYM15SP2
== END ==
LOC: M RAD 15:52
PROVIDERS: ATTEND Plastic Surgery Surgery of the Hand
DX: M54.07 Panniculitis affecting regions of neck and back, lumbosacral region (principal); M62.08 Separation of muscle (nontraumatic), other site
CPT/HCPCS: 74178; Q9967

== ENCOUNTER → 2022-06-12 | Outpatient (CLI) | payer BC ==
[~2022-06-12] MED LIST changes: -ISOVUE-370 76% 100ML VIAL As Ordered ONE
== END ==
LOC: M CARPUL 10:44
PROVIDERS: ATTEND Student in an Organized Health Care Education/Training Program
DX: R06.02 Shortness of breath (principal)

== ENCOUNTER → 2022-06-13 | Outpatient (CLI) | payer BC ==
[2022-06-13 20:02] LABS: GC DNA AMPLIFICATION POSITIVE (NEGATIVE)
== END ==
LOC: M LAB 17:08
PROVIDERS: ATTEND Student in an Organized Health Care Education/Training Program
DX: R10.9 Unspecified abdominal pain (principal)

== ENCOUNTER → 2022-12-11 | Outpatient (CLI) | payer BC ==
[2022-12-11 17:59] LABS: BASO % 0.6 % (0.0-1.0); EOS # 0.1 10^3/uL (0.0-0.5); HEMATOCRIT 41.5 % (36.0-47.0); HEMOGLOBIN 13.3 g/dl (12.0-15.5); LYMPH # 1.9 10^3/uL (1.5-5.0); LYMPH % 28.7 % (24.0-44.0); MEAN CORPUSCULAR HEMOGLOBIN 28.7 pg (27.0-33.0); MEAN CORPUSCULAR VOLUME 89.4 fl (80.0-96.0); MONO # 0.4 10^3/uL (0.0-0.8); MONO % 6.7 % (2.0-8.0); NEUTROPHILS # 4.1 10^3/uL (1.5-8.5); NEUTROPHILS % 61.7 % (36.0-66.0); PLATELET COUNT, AUTOMATED 225 10^3/uL (150-450); RED BLOOD COUNT 4.64 10^6/uL (4.00-5.40); WHITE BLOOD COUNT 6.6 10^3/uL (4.0-10.0)
[2022-12-11 18:29] LABS: ALBUMIN 3.7 G/DL (3.2-5.2); ALKALINE PHOSPHATASE 75 U/L (46-116); ALT/SGPT 25 U/L (7.0-40); AST/SGOT 20 U/L (<34); BILIRUBIN,TOTAL 0.5 MG/DL (0.3-1.2); BLOOD UREA NITROGEN 12 MG/DL (9-23); CALCIUM LEVEL 8.9 MG/DL (8.5-10.1); CARBON DIOXIDE LEVEL 29 MMOL/L (20-31); CHLORIDE LEVEL 106 MMOL/L (98-107); CHOLESTEROL LEVEL 163 MG/DL (<200); CREATININE FOR GFR 0.73 MG/DL (0.55-1.30); GLOMERULAR FILTRATION RATE > 60.0 (>58); GLUCOSE, FASTING 83 MG/DL (60-100); HDL CHOLESTEROL 62.5 MG/DL (>40); LDL CHOLESTEROL 74.7 MG/DL (<100); NON-HDL-C 100.5 MG/DL; SODIUM LEVEL 138 MMOL/L (136-145); TOTAL PROTEIN 6.8 G/DL (5.7-8.2); TRIGLYCERIDES LEVEL 129 MG/DL (<150)
[2022-12-11 18:31] LABS: THYROID STIMULATING HORMONE 1.965 uIU/ML (0.55-4.78)
[2022-12-11 18:32] LABS: TOTAL 25(OH) VITAMIN D 26.6 NG/ML (20.0-100.0)
[2022-12-11 18:34] LABS: FREE T4 1.15 NG/DL (0.89-1.76)
[2022-12-11 18:35] LABS: THYROID PEROXIDASE ANTIBODY 40 U/ML (<60.0)
[2022-12-11 20:21] LABS: THYROGLOBULIN ANTIBODY < 15.0 U/ML (<60.0)
== END ==
LOC: M LAB 16:53
PROVIDERS: ATTEND Student in an Organized Health Care Education/Training Program
DX: Z00.00 Encounter for general adult medical examination without abnormal findings (principal)

== ENCOUNTER → 2023-01-08 | Outpatient (CLI) | payer BC | LOC: M RAD 14:49 | PROVIDERS: ATTEND Student in an Organized Health Care Education/Training Program | DX: R06.02 Shortness of breath (principal) ==

== ENCOUNTER → 2023-02-14 | Outpatient (CLI) | payer BC | LOC: M PLAIMG 13:01 | PROVIDERS: ATTEND Nurse Practitioner Family | DX: R06.02 Shortness of breath (principal) ==

== ENCOUNTER → 2023-04-11 | Outpatient (CLI) | payer BC ==
[2023-04-11 12:06] LABS: BASO % 0.5 % (0.0-1.0); EOS # 0.1 10^3/uL (0.0-0.5); EOS % 1.4 % (0.0-3.0); HEMATOCRIT 42.3 % (36.0-47.0); HEMOGLOBIN 13.8 g/dl (12.0-15.5); LYMPH # 1.5 10^3/uL (1.5-5.0); LYMPH % 27.4 % (24.0-44.0); MEAN CORPUSCULAR HEMOGLOBIN 28.7 pg (27.0-33.0); MEAN CORPUSCULAR HGB CONC 32.6 g/dl (32.0-36.5); MEAN CORPUSCULAR VOLUME 87.9 fl (80.0-96.0); MONO # 0.4 10^3/uL (0.0-0.8); MONO % 6.7 % (2.0-8.0); NEUTROPHILS # 3.5 10^3/uL (1.5-8.5); NEUTROPHILS % 63.6 % (36.0-66.0); PLATELET COUNT, AUTOMATED 212 10^3/uL (150-450); RED BLOOD COUNT 4.81 10^6/uL (4.00-5.40); WHITE BLOOD COUNT 5.5 10^3/uL (4.0-10.0)
[2023-04-11 12:31] LABS: C REACTIVE PROTEIN QUANTITATIV < 0.40 MG/DL (<1.0)
[2023-04-11 12:32] LABS: TOTAL 25(OH) VITAMIN D 27.3 NG/ML (20.0-100.0)
[2023-04-11 13:33] LABS: IMMUNOGLOBULIN E 6.3 IU/ML (0-378)
== END ==
LOC: M LAB 11:20
PROVIDERS: ATTEND Internal Medicine Critical Care Medicine
DX: J45.40 Moderate persistent asthma, uncomplicated (principal)

== ENCOUNTER → 2023-05-14 | Outpatient (CLI) | payer BC | LOC: M PAIN 15:00 | PROVIDERS: ATTEND Nurse Practitioner Family | DX: M79.10 Myalgia, unspecified site (principal); G89.29 Other chronic pain; G47.30 Sleep apnea, unspecified; G43.909 Migraine, unspecified, not intractable, without status migrainosus; J45.909 Unspecified asthma, uncomplicated; Z86.59 Personal history of other mental and behavioral disorders; Z88.1 Allergy status to other antibiotic agents; Z88.8 Allergy status to other drugs, medicaments and biological substances; Z79.899 Other long term (current) drug therapy ==

== ENCOUNTER → 2023-07-09 | Outpatient (CLI) | payer BC ==
[~2023-07-09] MED LIST changes: +TRIAMCINOLONE ACETONIDE SUSP 40MG/ML 1ML VIAL As Ordered ONE
== END ==
LOC: M PAIN 14:15
PROVIDERS: ATTEND Anesthesiology
DX: M79.12 Myalgia of auxiliary muscles, head and neck (principal); M79.18 Myalgia, other site; R22.1 Localized swelling, mass and lump, neck; G43.909 Migraine, unspecified, not intractable, without status migrainosus; M54.2 Cervicalgia; M47.812 Spondylosis without myelopathy or radiculopathy, cervical region; M54.50 Low back pain, unspecified; M47.817 Spondylosis without myelopathy or radiculopathy, lumbosacral region; K21.9 Gastro-esophageal reflux disease without esophagitis; J45.909 Unspecified asthma, uncomplicated; F41.9 Anxiety disorder, unspecified; F43.10 Post-traumatic stress disorder, unspecified; M35.00 Sjogren syndrome, unspecified; L93.0 Discoid lupus erythematosus; Z79.899 Other long term (current) drug therapy; Z88.1 Allergy status to other antibiotic agents; Z88.8 Allergy status to other drugs, medicaments and biological substances
CPT/HCPCS: 20553; J0665; J3301

== ENCOUNTER → 2023-07-23 | Outpatient (CLI) | payer BC ==
[~2023-07-23] MED LIST changes: -TRIAMCINOLONE ACETONIDE SUSP 40MG/ML 1ML VIAL As Ordered ONE
== END ==
LOC: M SLEEP 20:00
PROVIDERS: ATTEND Internal Medicine Critical Care Medicine
DX: R06.83 Snoring (principal)

== ENCOUNTER → 2023-08-05 | Outpatient (CLI) | payer BC | LOC: M RAD 12:44 | PROVIDERS: ATTEND Anesthesiology | DX: R22.1 Localized swelling, mass and lump, neck (principal); M79.10 Myalgia, unspecified site ==

== ENCOUNTER → 2023-08-05 | Outpatient (CLI) | payer BC | LOC: M PAIN 11:45 | PROVIDERS: ATTEND Nurse Practitioner Family | DX: M79.18 Myalgia, other site (principal); R22.1 Localized swelling, mass and lump, neck; G89.29 Other chronic pain; G43.909 Migraine, unspecified, not intractable, without status migrainosus; M54.2 Cervicalgia; M47.812 Spondylosis without myelopathy or radiculopathy, cervical region; M54.50 Low back pain, unspecified; M47.816 Spondylosis without myelopathy or radiculopathy, lumbar region; K21.9 Gastro-esophageal reflux disease without esophagitis; J45.909 Unspecified asthma, uncomplicated; F41.9 Anxiety disorder, unspecified; F43.10 Post-traumatic stress disorder, unspecified; L93.0 Discoid lupus erythematosus; M35.00 Sjogren syndrome, unspecified; Z79.899 Other long term (current) drug therapy; Z88.1 Allergy status to other antibiotic agents; Z88.8 Allergy status to other drugs, medicaments and biological substances ==

== ENCOUNTER → 2023-08-27 | Outpatient (CLI) | payer BC ==
[~2023-08-27] MED LIST changes: +METHACHOLINE KIT INH ONE
== END ==
LOC: M CARPUL 14:57
PROVIDERS: ATTEND Internal Medicine Critical Care Medicine
DX: J45.40 Moderate persistent asthma, uncomplicated (principal)

== ENCOUNTER → 2023-10-21 | Outpatient (CLI) | payer BC ==
[~2023-10-21] MED LIST changes: -METHACHOLINE KIT INH ONE
== END ==
LOC: M PAIN 16:30
PROVIDERS: ATTEND Nurse Practitioner Family
DX: M79.12 Myalgia of auxiliary muscles, head and neck (principal); R22.1 Localized swelling, mass and lump, neck; G43.909 Migraine, unspecified, not intractable, without status migrainosus; M54.81 Occipital neuralgia; M47.812 Spondylosis without myelopathy or radiculopathy, cervical region; M47.817 Spondylosis without myelopathy or radiculopathy, lumbosacral region; K21.9 Gastro-esophageal reflux disease without esophagitis; J45.909 Unspecified asthma, uncomplicated; F41.9 Anxiety disorder, unspecified; F43.10 Post-traumatic stress disorder, unspecified; M35.00 Sjogren syndrome, unspecified; Z79.899 Other long term (current) drug therapy; Z88.1 Allergy status to other antibiotic agents; Z88.8 Allergy status to other drugs, medicaments and biological substances

== ENCOUNTER → 2023-11-25 | Outpatient (CLI) | payer BC ==
[~2023-11-25] MED LIST changes: +METHACHOLINE KIT INH ONE
== END ==
LOC: M CARPUL 09:55
PROVIDERS: ATTEND Internal Medicine Critical Care Medicine
DX: J45.40 Moderate persistent asthma, uncomplicated (principal)
CPT/HCPCS: 94070; 95070; J7674

== ENCOUNTER → 2023-11-25 | Outpatient (CLI) | payer BC ==
[~2023-11-25] MED LIST changes: -METHACHOLINE KIT INH ONE
== END ==
LOC: M SLEEP HO 10-07 09:57
PROVIDERS: ATTEND Internal Medicine Critical Care Medicine
DX: G47.33 Obstructive sleep apnea (adult) (pediatric) (principal)

== ENCOUNTER → 2023-12-04 | Outpatient (REF) | payer BC | LOC: M SFHCDERM 12:30 | PROVIDERS: ATTEND Physician Assistant | DX: D22.62 Melanocytic nevi of left upper limb, including shoulder (principal) ==

== ENCOUNTER → 2023-12-31 | Outpatient (REF) | payer BC, OTHER | LOC: M SFHCPLAZ 11:51 | PROVIDERS: ATTEND Student in an Organized Health Care Education/Training Program | DX: J06.9 Acute upper respiratory infection, unspecified (principal) ==

== ENCOUNTER → 2024-09-21 | Outpatient (REF) | payer BC | LOC: M SFHCLERA 11:34 | DX: Z53.9 Procedure and treatment not carried out, unspecified reason (principal); N92.6 Irregular menstruation, unspecified; M32.9 Systemic lupus erythematosus, unspecified; G47.33 Obstructive sleep apnea (adult) (pediatric); J45.909 Unspecified asthma, uncomplicated; E66.9 Obesity, unspecified ==

== ENCOUNTER → 2024-12-07 | Outpatient (CLI) | payer BC | LOC: M SOG 07:54 | PROVIDERS: ATTEND Physician Assistant | DX: M25.511 Pain in right shoulder (principal); M25.531 Pain in right wrist ==

== ENCOUNTER → 2025-04-20 | Outpatient (REF) | payer BC | LOC: M SFHCLERA 13:38 | DX: E66.9 Obesity, unspecified (principal) ==

== ENCOUNTER → 2025-04-26 | Outpatient (CLI) | payer BC ==
[2025-04-26 14:56] LABS: BASO # 0.0 10^3/uL (0.0-0.2); BASO % 0.6 % (0.0-1.0); EOS # 0.1 10^3/uL (0.0-0.5); EOS % 2.7 % (0.0-3.0); LYMPH # 1.4 10^3/uL (1.5-5.0); LYMPH % 28.2 % (24.0-44.0); MONO # 0.4 10^3/uL (0.0-0.8); MONO % 7.5 % (2.0-8.0); NEUTROPHILS # 3.1 10^3/uL (1.5-8.5); NEUTROPHILS % 60.8 % (36.0-66.0); PLATELET COUNT, AUTOMATED 214 10^3/uL (150-450)
[2025-04-26 15:10] LABS: ALT/SGPT 25 U/L (7.0-40); AST/SGOT 33 U/L (<34); CALCIUM LEVEL 8.4 MG/DL (8.5-10.1); CARBON DIOXIDE LEVEL 21 MMOL/L (20-31); CHLORIDE LEVEL 106 MMOL/L (98-107); CHOLESTEROL LEVEL 157 MG/DL (<200); CHOLESTEROL RISK RATIO 2.62 (<5); CREATININE FOR GFR 0.69 MG/DL (0.55-1.30); GLOMERULAR FILTRATION RATE > 90.0 (>58); LDL CHOLESTEROL 76.7 MG/DL (<100); NON-HDL-C 97.1 MG/DL; POTASSIUM SERUM 4.5 MMOL/L (3.5-5.1); SODIUM LEVEL 140 MMOL/L (136-145); TRIGLYCERIDES LEVEL 102 MG/DL (<150)
[2025-04-26 15:13] LABS: ESTIMATED AVERAGE GLUCOSE 100.0 MG/DL (60-110)
== END ==
LOC: M LAB 14:02
DX: E66.9 Obesity, unspecified (principal)

== ENCOUNTER → 2025-09-13 | Outpatient (CLI) | payer BC ==
[2025-09-13 13:42] LABS: BASO # 0.0 10^3/uL (0.0-0.2); BASO % 0.5 % (0.0-1.0); EOS # 0.1 10^3/uL (0.0-0.5); EOS % 1.2 % (0.0-3.0); LYMPH # 1.9 10^3/uL (1.5-5.0); LYMPH % 46.0 % (24.0-44.0); MONO # 0.3 10^3/uL (0.0-0.8); MONO % 6.0 % (2.0-8.0); NEUTROPHILS # 1.9 10^3/uL (1.5-8.5); NEUTROPHILS % 46.3 % (36.0-66.0); PLATELET COUNT, AUTOMATED 213 10^3/uL (150-450)
[2025-09-13 14:11] LABS: C REACTIVE PROTEIN QUANTITATIV < 0.50 MG/DL (<1.0)
[2025-09-13 14:12] LABS: ALT/SGPT 28 U/L (7.0-40); AST/SGOT 25 U/L (<34); CALCIUM LEVEL 9.2 MG/DL (8.5-10.1); CARBON DIOXIDE LEVEL 29 MMOL/L (20-31); CHLORIDE LEVEL 104 MMOL/L (98-107); CREATININE FOR GFR 0.80 MG/DL (0.55-1.30); GLOMERULAR FILTRATION RATE > 90.0 (>58); POTASSIUM SERUM 4.3 MMOL/L (3.5-5.1); SODIUM LEVEL 140 MMOL/L (136-145)
== END ==
LOC: M PLALAB 11:46
PROVIDERS: ATTEND Internal Medicine Infectious Disease
DX: A69.20 Lyme disease, unspecified (principal)